=== PATIENT | male | born 1945 | race Caucasian/White ===

== ENCOUNTER 2016-05-01 11:38 | Day surgery (SDC) | payer OTHER ==
[~2016-05-01] VITALS: Ht 175.3 cm; Wt 99.8 kg
[~2016-05-01 11:38] MED LIST: ALLOPURINOL100 MG PO; ASPIR 8181 M1 PO; CALCITRIOL0.25 MCG PO; CARVEDILOL12.5 MG PO; COREG25 M1 PO; Ceftin PO; DIOVAN320 MG PO; GABAPENTIN100 M1 PO; MYFORTIC180 MG PO; MYFORTIC360 MG PO; NEURONTIN400 MG PO; PLAVIX75 MG PO; PRAVASTATIN SOD80 MG PO; PROGRAF1 MG PO; Prograf PO; TRAMADOL HCL50 MG PO; ZANAFLEX2 M1 PO
== END 2016-05-01 13:30 | disposition home or self-care (01) ==
LOC: PAIN 11:38
PROC: 015B3ZZ Destruction of Lumbar Nerve, Percutaneous Approach (ICD-10-PCS; principal; 2016-05-01)
DX: M47.26 Other spondylosis with radiculopathy, lumbar region (principal); M54.5 Low back pain; F41.9 Anxiety disorder, unspecified; M48.06 Spinal stenosis, lumbar region; Z79.891 Long term (current) use of opiate analgesic; Z79.82 Long term (current) use of aspirin; Z94.0 Kidney transplant status
CPT/HCPCS: J1030; J2250; J3010; S0020

== ENCOUNTER 2016-06-05 11:22 | Day surgery (SDC) | payer OTHER ==
[~2016-06-05] VITALS: Ht 175.3 cm; Wt 99.8 kg
[2016-06-05 12:31] LABS: POINT-OF-CARE METER ID UU14174212; POINT-OF-CARE USER ID AHSRSCSLC11
== END 2016-06-05 13:35 | disposition home or self-care (01) ==
LOC: PAIN 11:22
PROVIDERS: Anesthesiology Pain Medicine
PROC: 015B3ZZ Destruction of Lumbar Nerve, Percutaneous Approach (ICD-10-PCS; principal; 2016-06-05)
DX: M47.26 Other spondylosis with radiculopathy, lumbar region (principal); F41.9 Anxiety disorder, unspecified; M62.838 Other muscle spasm; G62.9 Polyneuropathy, unspecified; M48.06 Spinal stenosis, lumbar region; Z79.82 Long term (current) use of aspirin; Z94.0 Kidney transplant status; I25.10 Atherosclerotic heart disease of native coronary artery without angina pectoris; E11.22 Type 2 diabetes mellitus with diabetic chronic kidney disease; I12.0 Hypertensive chronic kidney disease with stage 5 chronic kidney disease or end stage renal disease; N18.6 End stage renal disease; I65.29 Occlusion and stenosis of unspecified carotid artery; Z68.35 Body mass index [BMI] 35.0-35.9, adult
CPT/HCPCS: 82948; J1030; J2250; J3010; S0020

== ENCOUNTER 2016-08-23 04:27 | Inpatient (IN) | payer OTHER ==
[~2016-08-23] VITALS: Ht 172.7 cm; Wt 102.8 kg
[2016-08-23 05:52] LABS: ADD MIUA? YES; BILIRUBIN NEGATIVE; BLOOD SMALL; COLOR YELLOW ((YELLOW)); GLUCOSE (STRIP) >=500; KETONES 5; LEUKOCYTES SMALL; NITRITE POSITIVE; PROTEIN (STRIP) 100; SPECIFIC GRAVITY 1.017 (1.000-1.030); UROBILINOGEN 0.2 MG/DL (0.2-1.0)
[2016-08-23 05:59] LABS: BACTERIA 2+ /HPF; EPITHELIAL CELLS NONE SEEN /HPF; MUCUS NONE SEEN /LPF; RED BLOOD CELLS 0-5 /HPF (0-5); UCUL ADDED? NO; WHITE BLOOD CELLS 0-5 /HPF (0-5)
[2016-08-23 06:00] LABS: HEMATOCRIT 44.9 % (38.0-50.0); MCH 27.5 PG (29.0-34.0); MCHC 32.3 G/DL (30.0-36.0); MCV 85.2 FL (86-99); PLATELET COUNT 202 K/uL (156-360); RBC DIS.WIDTH-CV 13.9 % (11.8-14.6); RBC DIS.WIDTH-SD 43.1 % (39-53); RED BLOOD COUNT 5.27 M/uL (4.00-5.50); WHITE BLOOD COUNT 15.1 K/uL (4.1-10.2)
[2016-08-23 06:12] LABS: CHLORIDE 98 mEq/L (99-109); POTASSIUM 4.5 mEq/L (3.7-5.4); SODIUM 130 mEq/L (136-147)
[2016-08-23 06:15] LABS: GLUCOSE 271 mg/dL (70-99)
[2016-08-23 06:16] LABS: ANION GAP 7 MEQ/L (2-14); TOTAL BILIRUBIN 0.7 mg/dL (0.0-1.0)
[2016-08-23 06:18] LABS: ALKALINE PHOSPHATASE 73 IU/L (3-129); GFR ESTIMATE (CALCULATED) > 59 mL/min/
[2016-08-23 06:19] LABS: UREA NITROGEN (BUN) 11 mg/dL (9-23)
[2016-08-23 06:21] LABS: TROP-I INTERPRETATION NEGATIVE; TROPONIN-I < 0.01 ng/mL (0.0-0.30)
[2016-08-23 06:22] LABS: LIPASE 19 U/L (1.0-51.0)
[2016-08-23 06:57] LABS: CREATINE KINASE 162 IU/L (1-294); TOTAL CK 162 IU/L (1-294)
[2016-08-23 07:04] LABS: CK-MB 1.2 ng/mL (0.0-4.9)
[2016-08-23] MEDS ORDERED: PRAVASTATIN SOD40 MG PO (09:50)
[2016-08-23] MEDS ORDERED: TRESIBA FL100 UNIT/1 SC (10:12)
[2016-08-23 12:12] LABS: POINT-OF-CARE METER ID UU13113702
[2016-08-23 12:45] VITALS: BP 117/84
[2016-08-23 15:27] VITALS: BP 137/62
[2016-08-23 15:58] LABS: POINT-OF-CARE METER ID UU14162508
[2016-08-23 19:32] VITALS: BP 125/60
[2016-08-23 23:17] VITALS: BP 143/66
[2016-08-24 03:40] VITALS: BP 130/60
[2016-08-24 06:41] LABS: EOSINOPHIL (%) 0.4 % (0-5); EOSINOPHIL COUNT 0.1 K/uL (0-0.3); HEMATOCRIT 42.3 % (38.0-50.0); IMMATURE GRANULOCYTE (%) 0.4 % (0.0-0.7); IMMATURE GRANULOCYTE COUNT 0.1 K/uL; INSTRUMENT ABS NEUTROPHIL CT 10.9 K/uL; LYMPHOCYTE COUNT 1.4 K/uL (1.0-2.8); MCH 27.7 PG (29.0-34.0); MCHC 32.6 G/DL (30.0-36.0); MCV 84.9 FL (86-99); MEAN PLAT.VOLUME 10.4 uM^3 (9.0-12.4); MONOCYTE (%) 10.1 % (3-12); MONOCYTE COUNT 1.4 K/uL (0-0.8); NEUTROPHIL COUNT 10.9 K/uL (1.8-6.4); PLATELET COUNT 181 K/uL (156-360); RBC DIS.WIDTH-SD 43.5 % (39-53); RED BLOOD COUNT 4.98 M/uL (4.00-5.50); WHITE BLOOD COUNT 13.8 K/uL (4.1-10.2)
[2016-08-24 07:00] VITALS: BP 139/70
[2016-08-24 07:02] LABS: ANION GAP 8 MEQ/L (2-14); CHLORIDE 99 MEQ/L (99-109); GFR ESTIMATE (CALCULATED) > 59 mL/min/; GLUCOSE 254 mg/dL (70-99); POTASSIUM 4.1 MEQ/L (3.7-5.4); SAMPLE HEMOLYSIS CHECK 0; SAMPLE ICTERIC CHECK 0; SAMPLE LIPEMIA CHECK 0; SODIUM 132 MEQ/L (136-147); UREA NITROGEN (BUN) 14 mg/dL (9-23)
[2016-08-24 11:05] VITALS: BP 172/85
[2016-08-24 11:34] LABS: POINT-OF-CARE USER ID PUTDRM
[2016-08-24 15:20] VITALS: BP 174/75
[2016-08-24 16:23] LABS: POINT-OF-CARE USER ID PUTDRM
[2016-08-24 20:58] VITALS: BP 155/74
[2016-08-25 01:25] VITALS: BP 140/66
[2016-08-25 03:38] VITALS: BP 161/74
[2016-08-25 06:48] LABS: HEMATOCRIT 42.8 % (38.0-50.0); MCH 28.9 PG (29.0-34.0); MCHC 33.6 G/DL (30.0-36.0); MCV 85.8 FL (86-99); MEAN PLAT.VOLUME 10.2 uM^3 (9.0-12.4); PLATELET COUNT 195 K/uL (156-360); RBC DIS.WIDTH-CV 14.1 % (11.8-14.6); RBC DIS.WIDTH-SD 44.3 % (39-53); RED BLOOD COUNT 4.99 M/uL (4.00-5.50); WHITE BLOOD COUNT 7.9 K/uL (4.1-10.2)
[2016-08-25 06:53] LABS: ANION GAP 7 MEQ/L (2-14); CHLORIDE 98 MEQ/L (99-109); GFR ESTIMATE (CALCULATED) > 59 mL/min/; GLUCOSE 233 mg/dL (70-99); POTASSIUM 4.2 MEQ/L (3.7-5.4); SAMPLE HEMOLYSIS CHECK 0; SAMPLE ICTERIC CHECK 0; SAMPLE LIPEMIA CHECK 0; SODIUM 131 MEQ/L (136-147); UREA NITROGEN (BUN) 15 mg/dL (9-23)
[2016-08-25 07:20] VITALS: BP 166/76
[2016-08-25 11:40] LABS: POINT-OF-CARE METER ID UU14162508
[2016-08-25] MEDS ORDERED: HUMULIN R100 UNITS/ SC (12:05)
[2016-08-25] MEDS ORDERED: COMFORT MC (12:05)
[2016-08-25] MEDS ORDERED: HUMULIN N100 UNITS/ SC (12:05)
[2016-08-25] MEDS ORDERED: CEFTIN500 MG PO (12:05)
== END 2016-08-25 13:34 | disposition home or self-care (01) | DRG 690 ==
LOC: EME 04:27 → EDOF 08:32 → 2EAST 08:32
PROVIDERS: Emergency Medicine; Nurse Practitioner Adult Health; Pediatrics; Physician Assistant
DX: N39.0 Urinary tract infection, site not specified (principal); E11.65 Type 2 diabetes mellitus with hyperglycemia; E11.22 Type 2 diabetes mellitus with diabetic chronic kidney disease; E11.42 Type 2 diabetes mellitus with diabetic polyneuropathy; S40.012A Contusion of left shoulder, initial encounter; W19.XXXA Unspecified fall, initial encounter; Y92.009 Unspecified place in unspecified non-institutional (private) residence as the place of occurrence of the external cause; E87.1 Hypo-osmolality and hyponatremia; I12.9 Hypertensive chronic kidney disease with stage 1 through stage 4 chronic kidney disease, or unspecified chronic kidney disease; B96.20 Unspecified Escherichia coli [E. coli] as the cause of diseases classified elsewhere; N18.9 Chronic kidney disease, unspecified; Z94.0 Kidney transplant status; Z79.899 Other long term (current) drug therapy; Z87.442 Personal history of urinary calculi; Z68.34 Body mass index [BMI] 34.0-34.9, adult
CPT/HCPCS: 70450; 71010; 72125; 73030; 80048; 80053; 80069; 80197 90; 81003; 82550; 82553; 82948; 83605; 83690; 84484; 85025; 85027; 87040; 87077; 87086; 87186; 93005; 99281; 99285; J0696; J0744; J1650; J1815; J7030; J7050; J7507; J7518